=== PATIENT | male | born 2000 | race Two or more races ===

== ENCOUNTER 2023-01-15 23:27 | Emergency (ER) | payer OTHER ==
[2023-01-15 23:37] VITALS: BP 130/88; O2SAT 100
[2023-01-16] MEDS ORDERED: KETOROLAC 30 MG/ML VIAL IM STA (00:21)
--- NOTE | 2023-01-16 00:24 | ED Physician Documentation ---
PD HPI BACK PAIN - Stated complaint Stated Complaint: L SIDE PX - Chief complaint Chief Complaint: Trauma Ch/Bk - History obtained from History obtained from: Patient - Additional information Additional information: 22-year-old man, previously healthy, presents with left rib and back pain after heavy lifting yesterday and feeling a pop. Patient denies shortness of breath trauma to the area. No pain with twisting. It is painful to press on it and to take a deep breath. Pain is significantly improved with ibuprofen. PD PAST MEDICAL HISTORY - Past Medical History Past Medical History: No Cardiovascular: None Respiratory: None Endocrine/Autoimmune: None GI: None : None HEENT: None Psych: None Musculoskeletal: None Derm: None - Past Surgical History Past Surgical History: Yes Ortho: Other - Present Medications Home Medications: Ambulatory Orders Medication Instructions Recorded Confirmed No Known Home Medications 01/15/23 01/15/23 - Allergies Allergies/Adverse Reactions: Allergies Allergy/AdvReac Type Severity Reaction Status Date / Time No Known Drug Allergies Allergy Verified 01/15/23 23:31 - Social History Does the pt smoke?: No Smoking Status: Never smoker - Immunizations Immunizations are current?: No Immunizations: TDAP current <10years - POLST Patient has POLST: No PD ED PE NORMAL - Vitals Vital signs reviewed: Yes - General General: Alert and oriented X 3, No acute distress, Well developed/nourished - HEENT HEENT: Atraumatic, PERRL, EOMI - Cardiac Cardiac: RRR - Respiratory Respiratory: No respiratory distress, Clear bilaterally - Back Back: Other (Left lower rib cage discomfort with palpation. No crepitus) - Derm Derm: Normal color, Warm and dry - Neuro Neuro: Alert and oriented X 3 Results - Vitals Vitals: Vital Signs - 24 hr 01/15/23 23:31 Temperature 36.8 C Heart Rate 80 Respiratory 16 Rate Blood Pressure 130/88 H O2 Saturation 100 Oxygen O2 Source Room air PD Medical Decision Making - ED course ED course: 22-year-old male presented to the ED for evaluation of left posterior rib pain after heavy lifting yesterday. Unlikely spontaneous rib fracture given the mechanism and patient is nontender on exam with only some discomfort to palpation. Low suspicion for spontaneous pneumothorax given previously healthy. Symptomatic care discussed. Work note provided. Return precautions given. He will plan to follow-up with his primary care provider. Departure - Departure Disposition: 01 Home, Self Care Clinical Impression: Back pain Condition: Good Instructions: ANTI-INFLAMMATORY, General Comments: You were seen in the emergency department for Back pain after heavy lifting yesterday. You can take ibuprofen 600 mg every 6 hours as needed for pain on a full stomach. Please follow-up with your primary care provider and return to the emergency department if you have any new or worsening symptoms or other concerns. Forms: PCP List, Activity restrictions
== END 2023-01-16 01:10 | disposition home or self-care (01) ==
LOC: ED 23:27
DX: R07.81 Pleurodynia (principal); M54.9 Dorsalgia, unspecified
CPT/HCPCS: 96372; 99282; 99283

== ENCOUNTER 2023-08-03 20:51 | Outpatient (CLI) | payer OTHER | END 2023-08-03 20:52 | disposition left against medical advice (07) | LOC: EMS 20:51 | DX: Z04.1 Encounter for examination and observation following transport accident (principal) ==

== ENCOUNTER 2023-08-07 12:17 | Emergency (ER) | payer OTHER ==
[2023-08-07 12:32] VITALS: O2SAT 100
[2023-08-07 12:59] LABS: BASOPHILS # (AUTO) 0.1 10^3/uL (0.0-0.1); BASOPHILS % (AUTO) 1.3 %; EOSINOPHILS % (AUTO) 0.8 %; HCT - HEMATOCRIT 48.7 % (42.0-52.0); HGB - HEMOGLOBIN 15.5 g/dL (14.0-18.0); LYMPHOCYTES # (AUTO) 1.5 10^3/uL (1.5-3.5); LYMPHOCYTES % (AUTO) 40.4 %; MEAN CORPUSCULAR HEMOGLOBIN 26.4 pg (27.0-31.0); MEAN CORPUSCULAR HGB CONC 31.8 g/dL (32.0-36.0); MEAN CORPUSCULAR VOLUME 82.8 fL (80.0-94.0); MEAN PLATELET VOLUME 11.6 fL (7.4-11.4); MONOCYTES # (AUTO) 0.3 10^3/uL (0.0-1.0); MONOCYTES % (AUTO) 6.6 %; NEUTROPHILS # (AUTO) 1.9 10^3/uL (1.5-6.6); NEUTROPHILS % (AUTO) 50.6 %; PLT - PLATELET COUNT 270 10^3/uL (130-450); RED BLOOD COUNT 5.88 10^6/uL (4.70-6.10); RED CELL DISTRIBUTION WIDTH 13.1 % (12.0-15.0); WHITE BLOOD COUNT 3.8 x10^3/uL (4.8-10.8)
[2023-08-07 13:15] LABS: ALBUMIN 4.9 g/dL (3.2-5.5); ALBUMIN/GLOBULIN RATIO 1.4 (1.0-2.2); BILIRUBIN,TOTAL 0.9 mg/dL (0.2-1.0); CALCIUM 10.7 mg/dL (8.5-10.3); CREATININE 0.8 mg/dL (0.6-1.3); MAGNESIUM 1.9 mg/dL (1.7-2.3); TOTAL PROTEIN 8.3 g/dL (6.4-8.9)
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
[2023-08-07 14:19] VITALS: BP 145/87
== END 2023-08-07 14:10 | disposition home or self-care (01) ==
LOC: ED 12:17
DX: S06.0X1A Concussion with loss of consciousness of 30 minutes or less, initial encounter (principal); V49.9XXA Car occupant (driver) (passenger) injured in unspecified traffic accident, initial encounter
CPT/HCPCS: 36415; 80053; 83690; 83735; 85025; 99284